=== PATIENT | female | born 1970 | race African-American/Black ===

== ENCOUNTER 2020-12-12 11:11 | Outpatient (CLI) | payer BC ==
--- NOTE | 2020-12-12 11:39 | RAD ---
Left knee 2 views HISTORY: Left knee pain. FINDINGS: Joint spaces are preserved. Mild tricompartmental osteophytosis. No acute fracture, dislocation, or fluid distention of the suprapatellar bursa. IMPRESSION : Minimal osteoarthritic changes. No acute osseous abnormalities are demonstrated.
== END 2020-12-12 11:12 | disposition home or self-care (01) ==
LOC: BICRAD 11:11
PROVIDERS: ATTEND Family Medicine
DX: M25.562 Pain in left knee (principal); M17.12 Unilateral primary osteoarthritis, left knee